=== PATIENT | female | born 1985 | race Caucasian/White ===

== ENCOUNTER 2016-07-16 23:16 | Outpatient (CLI) | payer BC ==
[~2016-07-16 23:16] MED LIST: MTR600X PO; PRENTAB26 PO
[2016-07-17 00:33] LABS: MEAN CELL VOLUME 89.4 fL (80-100); MEAN CORPUSCULAR HEMOGLOBIN 30.1 pg (25-34); MEAN CORPUSCULAR HGB CONC 33.7 g/dl (32-36); MEAN PLATELET VOLUME 10.9 fL (7.4-10.4); PLATELET COUNT 162 K/uL (130-400); RED BLOOD COUNT 4.25 M/uL (4.2-5.4); WHITE BLOOD COUNT 14.86 K/uL (4.8-10.8)
[2016-07-17 00:45] LABS: ALB/GLOB RATIO 0.7 (0.9-2); ALKALINE PHOSPHATASE 109 U/L (45-117); ALT/SGPT 19 U/L (12-78); AST/SGOT 11 U/L (15-37); BLOOD UREA NITROGEN 12 mg/dl (7-18); BUN/CREATININE RATIO 19.3 (10-20); CALCIUM 8.8 mg/dl (8.5-10.1); CARBON DIOXIDE 25 mmol/L (21-32); CHLORIDE 108 mmol/L (98-107); GLUCOSE 93 mg/dl (70-99); POTASSIUM 4.4 mmol/L (3.5-5.1); SODIUM 141 mmol/L (136-145); URIC ACID 4.8 mg/dl (2.6-7.2)
[2016-07-17 00:58] LABS: MANUAL MICROSCOPIC REQUIRED? NO; REVIEW REQ? NO; URINE APPEARANCE CLEAR (CLEAR); URINE BILIRUBIN NEG (NEG); URINE COLOR DK YELLOW; URINE EPITHELIAL CELL AUTO >30 /lpf (0-5); URINE NITRITE NEG (NEG); URINE PH 6.5 (4.5-7.5); UROBILINOGEN NEG (NEG); ZZUR CULT IF INDIC CLEAN CATCH YES
--- NOTE | 2016-07-17 03:25 | Discharge Instructions ---
Discharge Instructions Date of Service July 17, 2016. Admission Reason for Admission: Right Upper Quadrant Pain Discharge Discharge Diagnosis / Problem: RUQ pain Discharge Goals Goal(s): Continuing OB care Activity Recommendations Activity Limitations: as noted below SPECIAL CARE INSTRUCTIONS: Call Doctor if: * Regular contractions every 5 minutes or greater than contractions in one hour. * Bleeding * Water breaks or is leaking * Decreased movement * Fever >100.4 degrees F * Pain not relieved by routine measures or pain medication ordered. FOLLOW UP VISIT: Return to Labor and Delivery on for /call for appointment time . Follow-up Visit with: When: . Current Hospital Diet Patient's current hospital diet: Discharge Diet Recommended Diet: Regular Diet Pending Studies Studies pending at discharge: no Medical Emergencies . Who to Call and When: Medical Emergencies: If at any time you feel your situation is an emergency, please call 911 immediately. . Non-Emergent Contact Non-Emergency issues call your: Specialist . . "Provider Documentation" section prepared by Cameron Sanchez. . VTE Core Measure Inpt VTE Proph given/why not?: Treatment not indicated
--- NOTE | 2016-07-17 06:38 | PROGRESS NOTE ---
DATE: 07/17/2016 HISTORY OF PRESENT ILLNESS: This is a 31-year-old G2, P1, due date 07/24/2016, making her 38+ weeks today who has had an unremarkable course till today when she started to experience mild headache with some right upper quadrant pain. She also complains of some nausea, no vomiting, no shortness of breath, no chills. The patient called this evening and was told to come to labor and delivery. On her arrival to labor and delivery, she had above complaints. Blood pressure was 120/80. However, her blood pressures continued to be in that range. There is no elevated blood pressure recorded. Urine showed trace protein. [facility] labs were done including CBC and complete chemistry. Hemoglobin is 12.8, hematocrit is 38.0, platelets is 162,000. Complete chemistry is unremarkable. AST is 11, ALT is 19. LDH is 130, all within normal range. So is uric acid which is 4.8. The patient was sent for a gallbladder ultrasound, . Preliminary results on ultrasound is also unremarkable as well. The patient's right upper quadrant pain and headache remarkably improved while here in labor and delivery. She declined any pain medication for the headache. The patient has history of preeclampsia in previous which was detected at 32 weeks' gestation. PAST MEDICAL HISTORY, PAST SURGICAL HISTORY, MEDICATIONS, ALLERGIES, SOCIAL AND FAMILY HISTORY: All were reviewed. After prolonged monitoring of labs and ultrasound, decision is made to discharge the patient in stable condition. The patient is scheduled for induction of labor in 48 hours and induction of labor is because of family reasons. Her is leaving out of town next week and the patient therefore has made arrangements with Dr. Campbell to be induced earlier. I have discussed with the patient the above findings in view of all the normal labs, diagnosis of preeclampsia is to the best of my ability excluded. Gallbladder disease is also excluded as well in view of the labs and the ultrasound studies. The patient is therefore been discharged home in stable condition. She will call the office if she has any new complaints. She does remember what her symptoms were and how she felt the last time she had preeclampsia at 32 weeks. Signs and symptoms of preeclampsia is reviewed with patient again and as stated above, will call if she has any new symptoms. CARSON
--- NOTE | 2016-07-17 07:06 | DIAGNOSTIC IMAGING REPORT ---
ULTRASOUND RIGHT UPPER QUADRANT ABDOMEN CLINICAL HISTORY: Right upper quadrant abdominal pain. COMPARISON STUDY: Abdominal CT dated 09/05/2010. TECHNIQUE: Real-time, grayscale, and color flow sonography of the right upper quadrant of the abdomen was performed. Images are reviewed in the transverse and longitudinal planes. FINDINGS: Liver: The liver is enlarged, measuring over 20 cm in length. The liver demonstrates heterogeneously increased echotexture consistent with hepatic steatosis. There is no intrahepatic biliary ductal dilatation. The main portal vein is patent. A 7 mm well-circumscribed echogenic lesion in the right lobe is typical appearance for a small hemangioma. Gallbladder: The gallbladder is normal in appearance. No gallstones are identified. There is no gallbladder wall thickening or pericholecystic fluid. A sonographic Mays's sign is reportedly absent. The common bile duct measures up to 0.4 cm in diameter. Pancreas: Visualized portions of the pancreatic head and body are normal in appearance. Right kidney: Survey images of the right kidney demonstrate normal size and echotexture. There is no hydronephrosis. Ascites: None. IMPRESSION: 1. No acute sonographic abnormality is identified. No gallstones are seen. 2. Hepatomegaly and hepatic steatosis. 3. A subcentimeter hemangioma is suggested in the right hepatic lobe. Electronically signed by: Jayson Torres M.D. 07/17/2016 7:05 AM Dictated Date/Time: 07/17/2016 7:03 AM
[2016-07-18] MEDS ORDERED: CHOL100010 PO (08:15)
[2016-07-18] MEDS ORDERED: PREN1TAB29 PO (08:15)
[2016-07-20] MEDS ORDERED: MTR600X PO (10:06)
== END 2016-07-17 03:35 | disposition home or self-care (01) ==
LOC: C.OPB 23:16 → C.LD 23:17 → C.OPB 07-17 03:35
PROVIDERS: ATTEND Obstetrics & Gynecology
DX: O26.893 Other specified pregnancy related conditions, third trimester (principal); R51 Headache; R10.11 Right upper quadrant pain; Z3A.38 38 weeks gestation of pregnancy

== ENCOUNTER 2016-07-18 07:23 | Inpatient (IN) | payer BC ==
[~2016-07-18] VITALS: Ht 162.6 cm; Wt 122.0 kg
[2016-07-18 08:13] VITALS: Ht 162.6 cm; Wt 122.0 kg
[2016-07-18] MEDS ORDERED: CHOL100010 PO (08:15)
[2016-07-18] MEDS ORDERED: PREN1TAB29 PO (08:15)
[2016-07-18] MEDS ORDERED: LACTATED RINGER'S 1000ML 1,000 ML IV PRN (08:57)
[2016-07-18] MEDS ORDERED: MISOPROSTOL 25 MCG TAB PV ONE (09:00)
[2016-07-18 10:19] LABS: HEMATOCRIT 37.4 % (37-47); MEAN CORPUSCULAR HEMOGLOBIN 30.7 pg (25-34); MEAN CORPUSCULAR HGB CONC 34.5 g/dl (32-36); PLATELET COUNT 153 K/uL (130-400); WHITE BLOOD COUNT 15.79 K/uL (4.8-10.8)
--- NOTE | 2016-07-18 10:37 | Progress Note ---
Progress Note Date of Service July 18, 2016. Progress Note 25 mcg Cytotec inserted in vagina. T Cat 1
--- NOTE | 2016-07-18 10:41 | Progress Note ---
Progress Note Date of Service July 18, 2016. Progress Note Admit Note 31 F P1001 at 39.1 weeks admitted for induction of labor for Class 3 obesity. Cervix closed/50/-3/vertex/soft/posterior. FHT Cat 1. GBS is negative. EFW is 7 lb. Will use Cytotec 25 mcg vaginally for induction.
[2016-07-18] MEDS ORDERED: LACTATED RINGER'S 1000ML 500 ML IV PRN ×2 (15:10→20:50)
--- NOTE | 2016-07-18 15:11 | Progress Note ---
Progress Note Date of Service July 18, 2016. Progress Note cervix /-3 FHT Cat 1 will start oxytocin to augment contractions
[2016-07-18] MEDS ORDERED: OXYTOCIN 30 UNITS/500ML NSS IV PRN (15:15)
[2016-07-18] MEDS: LACTATED RINGER'S 1000ML 1,000 ML IV SCH ×2 (15:31→21:24)
[2016-07-18] MEDS ORDERED: EpHEDrine SULFATE INJ 50 MG/ML AMP ONE (18:56)
[2016-07-18] MEDS ORDERED: FENTANYL 2MCG/ML ROPIV 1.25MG/ML 100ML BAG EPI ONE (18:56)
[2016-07-18] MEDS ORDERED: BUPIVACAINE 0.25% 30 ML VIAL ONE (18:56)
[2016-07-18] MEDS ORDERED: FENTANYL CITRATE INJ 50 MCG/1 ML 2 ML VIAL ONE (18:57)
--- NOTE | 2016-07-18 19:08 | Progress Note ---
Progress Note Date of Service July 18, 2016. Progress Note Cervix /-3 T Cat 1
[2016-07-18] MEDS ORDERED: BUTORPHANOL TARTRATE 1 MG/ML VIAL ONE (19:16)
[2016-07-18] MEDS ORDERED: BUTORPHANOL TARTRATE 1 MG/ML VIAL IV PRN (19:30)
[2016-07-18] MEDS ORDERED: NALOXONE HCL INJ 1 MG in SODIUM CHLORIDE 0.9% 1000ML 1,000 ML IV PRN (20:50)
[2016-07-18] MEDS ORDERED: NALBUPHINE HCL INJ 10 MG/ML AMP IV PRN (21:00)
[2016-07-18] MEDS ORDERED: FENTANYL 2MCG/ML ROPIV 1.25MG/ML 100ML BAG EPI PRN (21:00)
[2016-07-18] MEDS ORDERED: NALOXONE HCL INJ 0.4 MG/1 ML VIAL/CARP IV PRN (21:00)
[2016-07-18] MEDS ORDERED: DiphenhydrAMINE HCL 50 MG/ML VIAL IV PRN (21:00)
[2016-07-18] MEDS ORDERED: ONDANSETRON INJ 2 MG/ML 2 ML VIAL IV PRN (21:00)
[2016-07-18] MEDS ORDERED: PROMETHAZINE HCL INJ 6.25 MG in SODIUM CHLORIDE 0.9% 50ML 50 ML IV PRN (21:00)
[2016-07-18] MEDS ORDERED: EpHEDrine SULFATE INJ 50 MG/ML AMP IV PRN (21:00)
[2016-07-19] VITALS (7 sets, daily range): BP systolic 116–142; BP diastolic 68–94; PULSE 76–107; TEMP 36.4–36.9; O2SAT 93–95
--- NOTE | 2016-07-19 00:44 | Progress Note ---
Progress Note Date of Service July 19, 2016. Progress Note Called by RN for pain not relieved by pcea doses of epidural. On exam, excellent bilateral sensory level up to at least T6 to temperature with ice cube. Motor is strong in lower extremities. Pt complains of pain across upper abdomen with contractions. She is now 7 cm and has started shivering since entering transitional phase. FHT is reassuring. Suspect that increasing her epidural level to T4 and creating a denser block may help her pain control. 7cc of 1% lidocaine was added by hand push to epidural catheter and increased rate to 12cc/hr. Also explained to patient that deep pressure sensations may never completely abolish, and this is necessary to ensure that motor function is maintained. After 15 minutes of observation, pain scores significantly improved.
[2016-07-19] MEDS ORDERED: FENTANYL 2MCG/ML ROPIV 1.25MG/ML 100ML BAG EPI PRN (01:09)
[2016-07-19] MEDS ORDERED: FENTANYL 2MCG/ML ROPIV 1.25MG/ML 100ML BAG EPI ONE (01:53)
[2016-07-19] MEDS ORDERED: LACTATED RINGER'S 1000ML 1,000 ML IV SCH (03:08)
[2016-07-19] MEDS ORDERED: ACETAMINOPHEN 325 MG TAB PO PRN (03:15)
[2016-07-19] MEDS ORDERED: OXYCODONE/ACETAMINOPHEN 5-325 TAB PO PRN (03:15)
[2016-07-19] MEDS ORDERED: ACETAMINOPHEN/CODEINE 300/30MG TAB PO PRN ×2 (03:15)
[2016-07-19] MEDS ORDERED: LANOLIN OINT EXT PRN ×2 (03:15)
[2016-07-19] MEDS ORDERED: SUPERCREAM 0.870 % 15GM JAR EXT PRN (03:15)
[2016-07-19] MEDS ORDERED: BENZOCAINE 20% AER SPR 82.5 GM CAN EXT PRN (03:15)
[2016-07-19] MEDS ORDERED: OXYTOCIN 30 UNITS/500ML NSS IV PRN (03:15)
[2016-07-19] MEDS ORDERED: HYDROCORTISONE ACETATE 25 MG SUPP PR PRN (03:15)
--- NOTE | 2016-07-19 03:29 | Anesthesia Procedure Note ---
Anesthesia Epidural Removal Nt Date & Time July 19, 2016 at 03:29 Vital Signs Pain Intensity: 2.0 Notes Mental Status: alert / awake / arousable, participated in evaluation Nausea / Vomiting: adequately controlled Pain: adequately controlled Airway Patency, RR, SpO2: stable & adequate BP & HR: stable & adequate Hydration State: stable & adequate Neuraxial Anesthesia: was administered Anesthetic Complications: no major complications apparent, pt satisfied with anesthetic care Epidural: removed without complications, with tip intact
--- NOTE | 2016-07-19 04:54 | Vaginal Delivery Summary ---
Vaginal Delivery Summary Delivery Note Live female over intact perineum RADHA with nuchal cord x1 reduced on perineum Apgars 8/9 weight pending. Cord blood obtained and placenta delivered spontaneously and intact. No tears. EBL 100 ml. Final sponge and instrument count are correct. Mom and baby stable.
[2016-07-19] MEDS: PRENATAL VITAMIN TAB PO SCH (08:32)
[2016-07-19] MEDS: FERROUS SULFATE 325 MG TAB PO SCH (08:32)
[2016-07-19] MEDS: DOCUSATE SODIUM 100 MG CAP PO SCH ×2 (08:32→19:28)
[2016-07-19] MEDS: IBUPROFEN 600 MG TAB PO PRN ×3 (11:37→19:29)
[2016-07-20] MEDS: IBUPROFEN 600 MG TAB PO PRN ×5 (00:28→17:05)
[2016-07-20 07:07] LABS: HEMATOCRIT 33.4 % (37-47)
[2016-07-20 07:15] VITALS: BP 103/72; PULSE 87; TEMP 36.5; O2SAT 95
[2016-07-20] MEDS: DOCUSATE SODIUM 100 MG CAP PO SCH (07:39)
[2016-07-20] MEDS: FERROUS SULFATE 325 MG TAB PO SCH (07:39)
[2016-07-20] MEDS: PRENATAL VITAMIN TAB PO SCH (07:39)
[2016-07-20] MEDS ORDERED: DIPHTHERIA/TETANUS/PERTUSSIS 0.5 ML SYR/VIAL IM. ONE (09:00)
[2016-07-20] MEDS ORDERED: MEASLES, MUMPS & RUBELLA VIRUS VIAL SQ. ONE (09:00)
--- NOTE | 2016-07-20 10:05 | OB/GYN Progress Note ---
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 Subjective conversation w/ patient, physical exam Ambulation: ambulating normally Voiding: no voiding problems Passing Gas: Yes Diet Tolerance: Regular Diet Review of Systems Constitutional: No chills, No fatigue, No fever, No problem reported, No sweats , No weakness, No weight loss Respiratory: No cough, No dyspnea at rest, No dyspnea on exertion, No hemoptysis, No problem reported, No shortness of breath, No sputum, No wheezing Cardiac: No PND, No chest pain, No claudication, No edema, No orthopnea, No palpitations, No problem reported Breast: No breast lump, No breast pain, No change in shape, No nipple discharge , No problem reported, No see HPI Abdomen: No GI bleeding, No constipation, No diarrhea, No nausea, No pain, No problem reported, No vomiting Female : No abnormal vaginal bleeding, No dysuria, No hematuria, No incontinence, No problem reported, No see HPI, No urinary frequency, No vaginal discharge Objective Vital Signs Date Time Temp Pulse Resp B/P Pulse Ox O2 Delivery O2 Flow Rate FiO2 07/20/16 07:15 Room Air 07/20/16 07:15 36.5 87 20 103/72 95 Room Air 07/19/16 23:55 93 Room Air 07/19/16 23:55 36.8 78 18 118/81 93 Room Air 07/19/16 22:30 92 129/88 07/19/16 19:45 36.8 81 18 135/91 94 Room Air 07/19/16 19:45 Room Air 07/19/16 15:40 Room Air 07/19/16 15:40 36.4 104 20 117/68 07/19/16 11:30 36.9 76 20 142/94 95 Room Air Physical Exam General Appearance: WELL-APPEARING, WD/WN, NO APPARENT DISTRESS Respiratory/Chest: chest non-tender, lungs clear, normal breath sounds, no respiratory distress, no accessory muscle use Cardiovascular: regular rate, rhythm, no edema, no gallop, no JVD, no murmur Abdomen: normal bowel sounds, non tender, soft, no organomegaly, no pulsatile mass Fundus: Firm Extremities: normal range of motion, non-tender, normal inspection, no pedal edema, no calf tenderness Laboratory Results Last 24 Hours Test 07/20/16 06:24 Hemoglobin 11.2 g/dL Hematocrit 33.4 % Assessment and Plan Day Number: 1 Continue Routine Care: PPD #1 pt doing well wishes to go home disch home with instructions
[2016-07-20] MEDS ORDERED: MTR600X PO (10:06)
--- NOTE | 2016-07-20 10:08 | Discharge Instructions ---
Discharge Instructions Date of Service July 20, 2016. Admission Reason for Admission: Induction Discharge Discharge Diagnosis / Problem: Discharge Goals Goal(s): Routine recovery after delivery Activity Recommendations Activity Limitations: as noted below ACTIVITY RECOMMENDATIONS: * Gradual return to full activity over the next 2-3 weeks. * No lifting - nothing heavier than baby over the next 2-3 weeks. * Do not engage in vigorous exercise, sexual activity or sports until cleared by your physician. * Do not drive or operate any motorized equipment until cleared by your physician. * You may shower/bathe daily. BREAST CARE: If you are not breast feeding: * Wear a supportive bra 24 hours a day for one to two weeks. * Avoid stimulating your breasts and nipples as much as possible during the first few weeks after delivery. * When taking a shower, have the warm water hit your back, not breasts. * When your breasts feel full, apply ice packs. Usually three to four times a day helps ease the discomfort. * Take a mild pain medication (Tylenol/Motrin) when you are uncomfortable. If breast feeding: * Use breast milk to lubricate nipples. Lansinoh cream may be used for sore nipples. You do not need to remove cream prior to breast feeding. If using a different brand of cream, check the label for directions regarding removal of cream prior to nursing. * Wear a supportive bra. * If having problems with breasts or breast feeding, call a outbound sales consultant or your health care provider. EPISIOTOMY CARE: After delivery, if you have an episiotomy (stitches), the following steps will ease discomfort and aid healing. * For the first 24 hours after delivery, place ice packs next to your episiotomy to help reduce swelling. * After the first 24 hour-period, sitz baths, either portable or in the tub, are suggested. A shower with a shower arm sprayed over the episiotomy may be comforting. * Sonia care should be done after each voiding and bowel movement. Squirt warm water from a plastic bottle over the perineum (region of the body between the anus and urinary opening) and pat dry. * Use Dermoplast to ease discomfort. Shake container. Wilbur directly over the episiotomy. * Place a Tucks on a clean sanitary pad next to your episiotomy. OVER THE COUNTER MEDICATION: * For discomfort or pain, you may use Acetaminophen (Tylenol), Ibuprofen (Advil ), or Naproxen (Aleve) following the package directions. * For constipation you may use Colace following the package directions. SPECIAL CARE INSTRUCTIONS: When you are discharged from the hospital, it is important for you to follow the instructions listed below: * During the first week at home, you should be able to care for yourself and your baby. In addition, the usual light household activities are encouraged. * Limit your activities to the way you feel. Do not try to clean the house or move furniture. Be sensible. * If you actively engage in sports and have done so up until the time of your delivery, you may resume these activities as soon as you feel able. This may take up to one month or even longer. Use good judgment. * Continue to take your vitamins for at least six weeks after the of your baby. * Your diet need not be limited unless you were on a special diet before your delivery. Breast-feeding mothers need around 2500 calories per day and at least 64-80 ounces of fluid per day (8 to 10 glasses). * You should eat foods from the four major food groups. Crash diets or fad diets are to be avoided. Eating lean meats, fresh fruits and vegetables, low-fat dairy products, high fiber foods and a regular exercise program, will help you get back to your pre- weight without putting your health at risk. * Constipation is sometimes a problem after delivery. Take a mild laxative as needed. If breast feeding, Milk of Magnesia is acceptable to use. You may use a suppository or Fleets enema if no episiotomy. * A daily shower or tub bath is suggested. Be sure to thoroughly and gently dry the perineum. * A bloody vaginal discharge will usually continue until around four weeks post . A small amount of bleeding may continue for as long as six weeks. Vaginal discharge changes from the bright red bleeding after delivery to pink then brownish and finally yellowish-pink before becoming white and disappearing. * Bleeding may increase with activity. Your first period may come in 4-8 weeks. If you are breast feeding, your period may be delayed even longer. * [place] (sex) can begin whenever both you and your partner feel comfortable and do not have any form of genital infection. It is recommended that you wait until after your return appointment and discuss with your physician. If you have questions, please talk to your health care practitioner. A condom should be used to prevent infection and . * Foreplay, gentle intercourse and lubrication is very important the first several times to prevent pain. A water-based lubricant such as K-Y jelly or Astroglide may be used. * Tampons may be used six weeks after delivery. * Douching should be avoided for 6 weeks after delivery. * If you have RH negative blood and your baby is RH positive, you will receive RHOGAM by injection prior to discharge. The nurse will give you a card to keep with you that has the date and place that you received RHOGAM after delivery. * During your care, you had a Rubella screen done to check for the presence of rubella antibodies in your blood. If your test was negative, you will receive a Rubella vaccine prior to discharge. This vaccine may cause a fever, soreness at the injection site and flu-like symptoms. If these symptoms persist, notify your health care practitioner. is not advised for three months after a Rubella vaccine. There is a higher chance of having a baby with defects if conceived within three months of getting the vaccine. * If you were discharged 24 hours from delivery or before 48 hours: Visiting nurses will come to your home 48 hours after discharge to assess you and your baby. The visiting nurse will meet with you while you are in the hospital to arrange a time and get directions to your home. * Verbalizes understanding of car seat law as reviewed with patient nursing. * Car Seat hand-out given and reviewed with patient by nursing. * Shaken baby information reviewed with patient by nursing. Call you doctor if: * Heavy bleeding (saturating several pads an hour) or passing clots the size of your fist. * A fever >101 degrees F (38.3 degrees C) on two occasions four hours apart and/or chills. * Unusual pain in the pelvic or vaginal areas. * "Baby Blues" lasting longer than two weeks. If you have any questions or concerns, call your health care practitioner at . FOLLOW-UP VISIT: * Please call the office at to schedule a 6 week examination. It is important you keep this appointment. * It is important for you to make arrangements for either yearly or twice yearly check-ups thereafter. . Current Hospital Diet Patient's current hospital diet: Regular OB Diet Discharge Diet Recommended Diet: Regular Diet Pending Studies Studies pending at discharge: no Medical Emergencies . Who to Call and When: Medical Emergencies: If at any time you feel your situation is an emergency, please call 911 immediately. . Non-Emergent Contact Non-Emergency issues call your: Specialist . . "Provider Documentation" section prepared by Cameron Sanchez. . VTE Core Measure Inpt VTE Proph given/why not?: Treatment not indicated
[2016-07-20 15:30] VITALS: BP 134/83; PULSE 102; TEMP 36.6
[2016-07-20 19:00] VITALS: BP_DIAS 83; PULSE 102; TEMP 36.6
[2016-07-20] MEDS ORDERED: BISACODYL 5 MG TABEC PO SCH (20:00)
[2016-07-21] MEDS ORDERED: BISACODYL 10 MG SUPP PR PRN (07:00)
== END 2016-07-20 19:15 | disposition home or self-care (01) | DRG 775 ==
LOC: C.LD 07:23 → C.OBG 07-19 06:04
PROVIDERS: ADMIT Obstetrics & Gynecology; ATTEND Obstetrics & Gynecology
PROC: 10E0XZZ Delivery of Products of Conception, External Approach (ICD-10-PCS; principal; 2016-07-19)
PROC: 3E0P7GC Introduction of Other Therapeutic Substance into Female Reproductive, Via Natural or Artificial Opening (ICD-10-PCS; principal; 2016-07-19)
DX: O99.214 Obesity complicating childbirth (principal); Z68.42 Body mass index [BMI] 45.0-49.9, adult; E66.01 Morbid (severe) obesity due to excess calories; O69.81X0 Labor and delivery complicated by cord around neck, without compression, not applicable or unspecified; Z3A.39 39 weeks gestation of pregnancy; Z37.0 Single live birth

== ENCOUNTER → 2016-10-14 | Outpatient (CLI) | payer BC ==
[~2016-10-14] MED LIST changes: +CHOL100010 PO; +PREN1TAB29 PO; -PRENTAB26 PO
== END | disposition home or self-care (01) ==
LOC: C.LABSPEC 11:38
PROVIDERS: ATTEND Urology
DX: R31.29 Other microscopic hematuria (principal)

== ENCOUNTER → 2016-10-24 | Outpatient (CLI) | payer BC ==
[~2016-10-24] MED LIST changes: +OPTIRAY 320 IV PRN
--- NOTE | 2016-10-24 17:03 | DIAGNOSTIC IMAGING REPORT ---
ABD/PELVIS COMBO CLINICAL HISTORY: 31 years-old Female presenting with microscopic hematuria. TECHNIQUE: Multidetector CT of the abdomen and pelvis was performed before and after the administration of intravenous contrast. IV contrast: 112 mL of Optiray 320. A dose lowering technique was used consistent with the principles of ALARA (as low as reasonably achievable). COMPARISON: 09/05/2010. CT DOSE (mGy.cm): The estimated cumulative dose is 2541.03 mGy.cm. FINDINGS: Powder Room Attendant topogram: Unremarkable. Lung bases: Lung bases clear. No pericardial or pleural effusion. Liver: Normal morphology. No liver lesion. Patent hepatic vasculature. Biliary: No intrahepatic or extrahepatic biliary ductal dilatation. Normal gallbladder. Pancreas: Mild parenchymal atrophy. Spleen: Top normal in size. Adrenal glands: Normal. Kidneys and ureters: Nonobstructing 2 mm calculus in the interpolar region of the left kidney. No additional renal calculus. On postcontrast imaging, normal parenchymal enhancement and excretion bilaterally. No filling defect within the renal collecting systems. No hydronephrosis. Ureters normal. Bladder: Normal. Pelvic organs: Uterus and ovaries normal. Bowel: Normal. No bowel obstruction. Peritoneal cavity: No free fluid or intraperitoneal gas. Vasculature: Aorta and IVC patent and normal in caliber. Lymph nodes: Scattered subcentimeter mesenteric lymph nodes, nonspecific. No pathologically enlarged lymph nodes in abdomen or pelvis. Abdominal wall: Normal. Musculoskeletal: Normal. IMPRESSION: 1. Nonobstructing 2 mm calculus in the left kidney. No hydronephrosis. No suspicious renal or urothelial mass. Electronically signed by: Emanuel Quinn M.D. 10/24/2016 5:01 PM Dictated Date/Time: 10/24/2016 4:55 PM
== END | disposition home or self-care (01) ==
LOC: C.CTS 16:07
PROVIDERS: ATTEND Urology
DX: R31.29 Other microscopic hematuria (principal); N20.0 Calculus of kidney